=== PATIENT | female | born 1935 | race Two or more races ===

== ENCOUNTER 2017-09-11 05:34 | Day surgery (SDC) | payer OTHER, MEDICARE ==
[~2017-09-11] VITALS: Ht 165.1 cm; Wt 86.1 kg
[~2017-09-11 05:34] MED LIST: AMARYL4 MG PO; FLEXERIL5 MG PO; GLUCOPHAGE850 MG PO; LIPITOR40 MG PO; LOW DOSE ASPIRI81 M1 PO; MULTI-VITAMIN1 EAC4 PO; NORVASC10 MG PO; PREDNISONE5 MG PO; SYNTHROID112 MCG PO; TENORMIN50 MG PO; VITAMIN D2000 UNI1 PO
[2017-09-11] MEDS ORDERED: FISH OIL 1,0001 EA10 PO (06:07)
[2017-09-11 06:23] VITALS: BP 140/63
[2017-09-11 09:13] VITALS: BP 140/68
[2017-09-11 09:40] VITALS: BP 144/65
== END 2017-09-11 09:45 | disposition home or self-care (01) ==
LOC: SDC 05:34
PROVIDERS: Ophthalmology
DX: E11.319 Type 2 diabetes mellitus with unspecified diabetic retinopathy without macular edema (principal); H33.42 Traction detachment of retina, left eye; I10 Essential (primary) hypertension; E78.5 Hyperlipidemia, unspecified; E03.9 Hypothyroidism, unspecified; M35.3 Polymyalgia rheumatica; Z79.84 Long term (current) use of oral hypoglycemic drugs
CPT/HCPCS: 80048; 82948; J0690; J1100; J2405; J2795; J3300

== ENCOUNTER 2017-10-20 14:50 | Day surgery (SDC) | payer OTHER, MEDICARE ==
[~2017-10-20] VITALS: Ht 165.1 cm; Wt 86.1 kg
[~2017-10-20 14:50] MED LIST changes: +ACETAZOLAMIDE500 MG PO; +ALEVE220 MG PO; +ALPHAGAN P100 DROP/5 RIGHT EYE; +ATROPINE 1100 DROP/5 RIGHT EYE; +DORZOLAMIDE-TIM10 ML RIGHT EYE; +FISH OIL 1,0001 EA10 PO; +PREDNISONE1 MG PO; -PREDNISONE5 MG PO; +TYLENOL EXTRA500 MG PO
[2017-10-20 15:42] VITALS: BP 151/74
[2017-10-20 19:53] VITALS: BP 157/71
[2017-10-20 20:23] VITALS: BP 146/71
== END 2017-10-20 20:30 | disposition home or self-care (01) ==
LOC: SDC 14:50
PROVIDERS: Ophthalmology
DX: H40.211 Acute angle-closure glaucoma, right eye (principal); H43.391 Other vitreous opacities, right eye; H21.01 Hyphema, right eye; H35.371 Puckering of macula, right eye; I10 Essential (primary) hypertension; E78.5 Hyperlipidemia, unspecified; E11.9 Type 2 diabetes mellitus without complications; Z79.84 Long term (current) use of oral hypoglycemic drugs; E03.9 Hypothyroidism, unspecified; M35.3 Polymyalgia rheumatica; Z87.891 Personal history of nicotine dependence; Z88.8 Allergy status to other drugs, medicaments and biological substances; Z88.6 Allergy status to analgesic agent
CPT/HCPCS: 82948; J0690; J1100; J1120; J1885; J2795; J3300